=== PATIENT | male | born 1950 | race Two or more races ===

== ENCOUNTER 2019-09-21 17:47 | Emergency (ER) | payer MEDICARE ==
[~2019-09-21] VITALS: Ht 162.6 cm; Wt 80.0 kg
--- NOTE | 2019-09-21 18:43 | NUR ---
ON ARRIVAL TO ROOM FROM [facility], PT VERY UNCOMFORTABLE AND PACING, STATING FOR TWO DAYS HE HAS ONLY DRIBLED URINE. 500 ML NOTED ON BLADDER SCAN. CATHETER PLACED NOTED WITH 500 ML URINE OUTPUT NOTED.
[2019-09-21 19:17] VITALS: BP 170/78
--- NOTE | 2019-09-21 19:17 | NUR ---
REPORT TO MYLES FAN
[2019-09-21 19:25] LABS: MICROSCOPIC AUTO
[2019-09-21 19:27] LABS: CULTURE INDICATED? YES
--- NOTE | 2019-09-21 19:34 | NUR ---
Patient/Caregiver given discharge instructions and they have confirmed that they understand the instructions. Patient ambulatory with steady gait.
--- NOTE | 2019-09-21 19:43 | NUR ---
PT GIVEN [facility] INSTRUCTIONS.
== END 2019-09-21 19:45 | disposition home or self-care (01) ==
LOC: ED 19:00
DX: N40.1 Benign prostatic hyperplasia with lower urinary tract symptoms (principal); R33.8 Other retention of urine
CPT/HCPCS: 51702; 81001; 87086; 93005; 99284